=== PATIENT | male | born 1960 | race African-American/Black ===

== ENCOUNTER 2017-04-10 08:27 | Emergency (ER) | payer SELFPAY ==
[~2017-04-10] VITALS: Ht 182.9 cm; Wt 72.6 kg
[2017-04-10] MEDS ORDERED: METF1000 PO (09:14)
--- NOTE | 2017-04-10 09:22 | ED General ---
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 Patient is hypertensive and diabetic and is out of his metformin and lisinopril. The patient's blood sugars with his metformin have been running between 170 and 230. Patient takes 1000 mg of metformin twice a day. The patient's blood pressure has been treated with lisinopril. The patient has not been tracking his blood pressure at home. Patient denies headache, blurred vision, stiff neck, syncopal episodes, or worsening of any paresthesias to his arms and legs. Allergies and Home Medications Allergies Coded Allergies: No Known Drug Allergies (Unverified , 04/10/17) Home Medications Metformin HCl 1,000 Mg Tablet, 1,000 MG PO BID, (Reported) Patient Home Medication List Home Medication List Reviewed: Yes Constitutional: No chills, No fever EENTM: No hearing loss, No blurred vision Respiratory: No cough Cardiovascular: No chest pain Gastrointestinal: No abdominal pain, No diarrhea, No nausea Genitourinary: no symptoms reported Musculoskeletal: No back pain Skin: no symptoms reported, No rash Psychiatric/Neurological: No Symptoms Reported Hematologic/Lymphatic: No Symptoms Reported Immunological/Allergic: no symptoms reported Past [id number] Hx Patient Social History Alcohol Use: Denies Use Recreational Drug Use: Yes Smoking Status: Never a Smoker Recent Foreign Travel: No Contact w/Someone Who Travel: No Surgeries History of Surgeries: No Respiratory History of Respiratory Disorde: No Cardiovascular History of Cardiac Disorders: No Neurological History of Neurological Disord: No Genitourinary History of Genitourinary Disor: No Gastrointestinal History of Gastrointestinal Di: No Musculoskeletal History of Musculoskeletal Dis: No Endocrine History of Endocrine Disorders: Yes Endocrine Disorders: Diabetes, Non-Insulin dep Integumentary History of Skin or Integumenta: No Reviewed Nursing Assessment Reviewed/Agree w Nursing PMH: Yes Physical Exam Vital Signs Vital Signs - First Documented 04/10/17 08:59 Temp 98.0 Pulse 79 Resp 18 B/P (MAP) 176/109 (131) Pulse Ox 98 Capillary Refill : General Appearance: No Apparent Distress, WD/WN Eyes: Bilateral Eye Normal Inspection HEENT: Normal ENT Inspection Neck: Normal Inspection Respiratory: Chest Non Tender, Lungs Clear, Normal Breath Sounds Cardiovascular: Regular Rate, Rhythm, No Edema, No Murmur Gastrointestinal: Normal Bowel Sounds, No Organomegaly Extremity: Normal Capillary Refill, Normal Inspection, Normal Range of Motion Neurologic/Psychiatric: Oriented x3, No Motor/Sensory Deficits, Normal Mood/ Affect Skin: Normal Color, Warm/Dry Progress/Results/Core Measures Suspected Sepsis SIRS Temperature: Pulse: Respiratory Rate: Blood Pressure / Mean: Results/Orders Vital Signs/I&O Vital Sign - Last 12Hours 04/10/17 08:59 Temp 98.0 Pulse 79 Resp 18 B/P (MAP) 176/109 (131) Pulse Ox 98 Capillary Refill : Progress Note : Time: 09:24 Progress Note I refilled the patient's metformin 1000 mg twice a day and lisinopril 20 mg daily. I started patient on 10 mg of lisinopril for a week and then ask him to increase to his old dose of 20 mg daily if his blood pressure was still elevated. I strongly encouraged him to follow up with his caregiver of choice within the next 1-2 weeks for further evaluation. He was invited to return to the emergency department if he had a further problems or questions. ECG Initial ECG Impression Date: Apr 10, 2017 Departure Impression Impression: Primary Impression: Diabetes Qualified Codes: E11.9 - Type 2 diabetes mellitus without complications Additional Impression: Hypertension Qualified Codes: I10 - Essential (primary) hypertension Disposition: 01 HOME, SELF-CARE Condition: Unchanged Departure-Patient Inst. Decision time for Depature: 09:25 Referrals: NO,LOCAL PHYSICIAN (PCP) Primary Care Physician Patient Instructions: DIABETES, High Blood Pressure (DC) Add. Discharge Instructions: Metformin and lisinopril as prescribed. Close follow-up Choice. Return if any problems. All discharge instructions reviewed with patient and/or family. Voiced understanding. CARRI DEL ROSARIO MD Apr 10, 2017 09:22
[2017-04-10 09:36] VITALS: BP 176/109
== END 2017-04-10 09:36 | disposition home or self-care (01) ==
LOC: ER 08:29
DX: E11.9 Type 2 diabetes mellitus without complications (principal); I10 Essential (primary) hypertension; Z79.84 Long term (current) use of oral hypoglycemic drugs
CPT/HCPCS: 99281